=== PATIENT | female | born 1950 | race Caucasian/White ===

== ENCOUNTER 2017-12-03 07:19 | Emergency (ER) | payer MEDICAID, MEDICARE ==
[~2017-12-03] VITALS: Ht 165.1 cm; Wt 73.0 kg
[2017-12-03] MEDS ORDERED: SODIUM CHLORIDE 0.9% 1,000 ML IV ONE (07:47)
[2017-12-03] MEDS ORDERED: ONDANSETRON ODT 4 MG ONE (07:51)
[2017-12-03] MEDS ORDERED: MORPHINE SULFATE 4 MG/ML, 1ML ONE ×4 (07:51→11:39)
[2017-12-03] MEDS: MORPHINE SULFATE 4 MG/ML, 1ML IVPush PRN ×4 (07:52→11:40)
[2017-12-03] MEDS ORDERED: ONDANSETRON ODT 4 MG PO ONE (08:00)
[2017-12-03] MEDS ORDERED: SODIUM CHLORIDE 0.9% 1,000ML IVBOLUS ONE (08:00)
[2017-12-03] MEDS ORDERED: ASPIRIN 81 MG TABLET CHEW PO ONE (08:00)
[2017-12-03 08:04] LABS: BASOPHILS # (AUTO) 0.02 x10^3/uL (0-0.1); BASOPHILS % (AUTO) 0 % (0-1); EOSINOPHILS # (AUTO) 0.03 x10^3/uL (0-0.4); EOSINOPHILS % (AUTO) 0 % (1-7); LYMPHOCYTES # (AUTO) 1.97 x10^3/uL (1-3.4); LYMPHOCYTES % (AUTO) 21 % (22-44); MD NO; MEAN CORPUSCULAR HEMOGLOBIN 30.3 pg (27.0-34.8); MEAN CORPUSCULAR HGB CONC 33.4 g/dL (32.4-35.8); MEAN CORPUSCULAR VOLUME 90.9 fL (80-100); MEAN PLATELET VOLUME 7.7 fL (7.4-10.4); MONOCYTES # (AUTO) 0.53 x10^3/uL (0.2-0.8); MONOCYTES % (AUTO) 6 % (2-9); NEUTROPHILS # (AUTO) 6.86 x10^3/uL (1.8-6.8); NEUTROPHILS % (AUTO) 73 % (42-75); PLATELET COUNT 250 x10^3/uL (130-400); RED CELL DISTRIBUTION WIDTH 13.1 % (9.6-15.2)
[2017-12-03] MEDS ORDERED: ASPIRIN 81 MG TABLET CHEW ONE (08:12)
[2017-12-03 08:16] LABS: ALANINE AMINOTRANSFERASE 28 U/L (12-78); ALBUMIN 3.5 g/dL (3.4-5.0); ANION GAP 8 mmol/L (5-15); CALCIUM 8.7 mg/dL (8.5-10.1); CHLORIDE 110 mmol/L (98-107); CREATININE 0.97 mg/dL (0.55-1.02)
[2017-12-03 08:21] LABS: ALKALINE PHOSPHATASE 68 U/L (45-117); BILIRUBIN,TOTAL 0.5 mg/dL (0.2-1.0); TOTAL PROTEIN 6.7 g/dL (6.4-8.2); TROPONIN I < 0.015 ng/mL (0.000-0.045)
[2017-12-03] MEDS ORDERED: PROMETHAZINE 25 MG/ML, 1ML IM ONE (08:30)
[2017-12-03] MEDS ORDERED: PROMETHAZINE 25 MG/ML, 1ML ONE (08:36)
[2017-12-03] MEDS ORDERED: OMNIPAQUE 350 MG/ML, 100ML BOTTLE ONE (09:22)
[2017-12-03 10:08] LABS: MICROSCOPIC NOT IND
[2017-12-03 10:10] LABS: CULTURE INDICATED? NO
[2017-12-03 12:53] VITALS: BP 158/67
== END 2017-12-03 12:55 | disposition home or self-care (01) ==
LOC: ED 12:40
DX: R91.1 Solitary pulmonary nodule (principal); R10.10 Upper abdominal pain, unspecified; R11.2 Nausea with vomiting, unspecified; E11.9 Type 2 diabetes mellitus without complications; J44.9 Chronic obstructive pulmonary disease, unspecified; M19.90 Unspecified osteoarthritis, unspecified site; I25.2 Old myocardial infarction; G89.29 Other chronic pain; Z85.038 Personal history of other malignant neoplasm of large intestine; Z90.49 Acquired absence of other specified parts of digestive tract
CPT/HCPCS: 36415; 71045; 74177; 80053; 81003; 83690; 84484; 85025; 93005; 96361; 96372; 96374; 96376; 99285; J2550; J7030; Q0162; Q9967

== ENCOUNTER 2018-01-25 13:25 | Emergency (ER) | payer MEDICARE ==
[~2018-01-25] VITALS: Ht 162.6 cm; Wt 75.0 kg
[2018-01-25 13:42] VITALS: BP 145/80
[2018-01-25] MEDS ORDERED: HYDROmorphone 2 MG/ML, 1ML ONE (13:57)
[2018-01-25] MEDS ORDERED: ONDANSETRON ODT 4 MG ONE (13:58)
[2018-01-25] MEDS ORDERED: ONDANSETRON ODT 4 MG PO ONE (14:30)
[2018-01-25] MEDS ORDERED: HYDROmorphone 2 MG/ML, 1ML IM ONE (14:30)
== END 2018-01-25 15:41 | disposition home or self-care (01) ==
LOC: ED 14:00
DX: S82.65XA Nondisplaced fracture of lateral malleolus of left fibula, initial encounter for closed fracture (principal); J44.9 Chronic obstructive pulmonary disease, unspecified; E11.9 Type 2 diabetes mellitus without complications; M19.90 Unspecified osteoarthritis, unspecified site; W01.0XXA Fall on same level from slipping, tripping and stumbling without subsequent striking against object, initial encounter; Y93.89 Activity, other specified; Y99.8 Other external cause status; Y92.009 Unspecified place in unspecified non-institutional (private) residence as the place of occurrence of the external cause
CPT/HCPCS: 29515; 73590; 73610; 73630; 96372; 99284; J1170; Q0162

== ENCOUNTER → 2018-02-24 | Outpatient (CLI) | payer MEDICARE | END | disposition home or self-care (01) | LOC: RAD 16:51 | PROVIDERS: ATTEND Orthopaedic Surgery | DX: S92.142A Displaced dome fracture of left talus, initial encounter for closed fracture (principal); S82.302A Unspecified fracture of lower end of left tibia, initial encounter for closed fracture; X58.XXXA Exposure to other specified factors, initial encounter; Y93.89 Activity, other specified; Y92.89 Other specified places as the place of occurrence of the external cause; Y99.8 Other external cause status ==

== ENCOUNTER 2020-05-19 10:02 | Emergency (ER) | payer MEDICARE ==
[~2020-05-19] VITALS: Ht 162.6 cm; Wt 71.8 kg
--- NOTE | 2020-05-19 10:02 | NUR ---
INITIAL PT CONTACT. PT PRESENTS TO ED C/O RIGHT HIP PAIN. PT STATES SHE HAD A FALL 6 DAYS AGO AND LANDED ON HER LEFT HIP, YESTERDAY ANOTHER FALL AND LANDED ON HER RIGHT HIP. PT STATES SHE WAS ABLE TO GET OFF THE FLOOR YESTERDAY "WITH A LOT OF HELP FROM PEOPLE LIFTING ME UP. I JUST CANT TAKE THE PAIN, I HAD TO COME". PT HAS TENDERNESS TO PALPATION, LIMITED ROM OF RIGHT HIP. NO SHORTENING NOTED. CALL LIGHT AND PERSONAL BELONGINGS WITHIN REACH. FALL PRECAUTIONS IN PLACE.
--- NOTE | 2020-05-19 11:00 | NUR ---
PT SUPINE IN BED NAD, VSS. PT STATES "I STILL HAVE SO MUCH PAIN", MD AWARE. NO ADDITIONAL NEEDS AT THIS TIME. CALL LIGHT IN REACH, FALL PRECAUTIONS IN PLACE.
--- NOTE | 2020-05-19 11:27 | NUR ---
ATHLETIC COACH AT BEDSIDE TO WALK PT
--- NOTE | 2020-05-19 11:50 | NUR ---
PT ANGRY WITH STAFF (DR HINDS, RN, TECH) AFTER ERP EXPLAINED WHAT SHE COULD/COULD NOT ADMINISTER FOR PAIN, PT YELLING & REFUSED TO ACCEPT DC INSTRUCTIONS INCL NEED TO FOLLOW-UP WITH PAIN MD DESPITE FUNCTIONING MORPHINE PUMP. PT PROVIDED CLEAN CLOTHES, NON-SKID SOCKS & FWW FOR DC. THIS RN & TECHS ATTEMPTED TO ASSIST PT TO AMBULATE WITH FWW, PT STOOD UP & TOOK A STEP WHEN SHE YELLED "THAT'S IT! I'M NOT DOING ANYMORE!"- DR HINDS AWARE. PT REFUSED TO SIGN & TAKE DC INSTR & DEMANDED TO BE TAKEN TO A PHONE TO CALL HER TO PICK HER UP. PT TO DC DESK VIA WC WITH FWW.
[2020-05-19 11:58] VITALS: BP 143/84
== END 2020-05-19 12:12 | disposition home or self-care (01) ==
LOC: ED 11:20
DX: S70.01XA Contusion of right hip, initial encounter (principal); W01.0XXA Fall on same level from slipping, tripping and stumbling without subsequent striking against object, initial encounter; Y93.89 Activity, other specified; Y92.098 Other place in other non-institutional residence as the place of occurrence of the external cause; Y99.8 Other external cause status
CPT/HCPCS: 99283